=== PATIENT | female | born 1925 | race Caucasian/White ===

== ENCOUNTER → 2016-08-28 | Outpatient (CLI) | payer OTHER, BC ==
[~2016-08-28] VITALS: Ht 162.6 cm; Wt 83.5 kg
[~2016-08-28] MED LIST: AMBIEN 5 MG TABL5 M1 PO; APAP500 PO; ASPIR 8181 MG PO; BISACODYL SUPP10 MG RECTAL; CENTRUM SILVER1 EAC3 PO; CIPRO250 M1 PO; CLEOCIN HCL300 MG PO; COLACE100 MG PO; CRANBERRY500 M1 PO; FLONASE 0.05%50 MCG NASAL; FLORANEX TABLE1 EACH PO; GABAPENTIN 100100 MG PO; GAVILAX17 GM PO; HYDROCHLOROTH12.5 MG PO; HYDROCODONE-AP1 EA11 PO; HYDROCODONE-AP1 EAC6 PO; LEVAQUIN 250 M250 MG PO; LOPRESSOR25 PO; LUTEIN 15 MG S1 EACH PO; MACROBID 100 M100 M1 PO; MELATONIN3 MG PO; MELOXICAM7.5 MG PO; METAMUCIL PAC1 UDPKT PO; MILK OF MA2400 MG/10 PO; MIRALAX17 GM PO; NABUMETONE 500500 M1 PO; NAPROSYN500 MG PO; NITROFURANTOIN50 M4 PO; NORVASC10 MG PO; NORVASC5 MG PO; OMEPRAZOLE40 MG PO; PREDNISONE 20 M20 MG PO; PRESERVISION A1 EAC2 PO; PRESERVISION T1 EACH PO; PROAIR HFA8.5 GM; RED YEAST RICE600 MG PO; SENOKOT-S1 TA1 PO; SYMBICORT80 MCG/4.1 INH; TRAMADOL 50 MG50 MG PO; VENTOLIN HFA INH8 GM INH; VITAMIN D-32000 UNIT PO; VITAMINC500 PO; XOPENEX HF1 UDINHALE IH
--- NOTE | ~2016-08-28 | HPC ---
[facility] [address] [place] [address] PAIN MANAGEMENT CONSULTATION Name: KEM MANZANARES Mayra Room #: REG Jeffery Muhammad#: [id number] Admission: 08/28/16 Attend Phys: Edilson Goode DO Discharge: Date of : 07/[birth year] Report #: [id number] THIS REPORT FOR: //name// CC: Edilson Stevenson MD DATE OF SERVICE: 08/28/2016 REFERRING PHYSICIAN: Alisha Stevenson M.D. CHIEF COMPLAINT: Back pain. HISTORY OF PRESENT ILLNESS: As you know, patient is a very pleasant 89-year-old female who suffered an acute vertebral compression fracture for which she underwent a kyphoplasty procedure here at [facility] and unfortunately, this was unsuccessful alleviating any of her symptoms. She was referred to our service due to ongoing pain issues. It was noted that the vertebral augmentation was suboptimal and would not have improved her symptoms to any great degree. After treatment for this ongoing back pain, she contacted our clinic, advising us that her pain had intensified once again. She was sent for x-ray imaging found to have suffered a second vertebral compression fracture. This brought her to [facility] where she underwent a kyphoplasty procedure with better improvement in symptoms. She was then subsequently discharged from [facility] to a penitentiary facility where she has been recuperating from her fractures. During the hospitalization and [facility], she was given a prescription to have a TLSO brace fit, so that we can protect the vertebral column from future fractures. This was not applied. She returns today to discuss her concerns about the TLSO brace not being applied and medication management. ALLERGIES: SULFA, CODEINE and CEPHALEXIN. CURRENT MEDICATIONS: Acidophilus, MiraLax, bisacodyl, magnesium, Lutein, amlodipine, hydrocodone, nabumetone, Senokot, aspirin, hydrochlorothiazide and omeprazole. SOCIAL HISTORY: The patient denies tobacco, alcohol or IV illicit drug use. She is retired for years, accompanied by her daughter. PHYSICAL EXAMINATION: VITAL SIGNS: Blood pressure 124/62, pulse 65, respiratory rate 16 and unlabored. The patient 92% on room air. Height 5 feet 4 inches tall, weight 184 pounds and BMI calculated 31.6. GENERAL: Well developed, well nourished, well hydrated 89-year-old female appearing stated age, placing current pain score at 8/10. [address] [address] PAIN MANAGEMENT CONSULTATION Name: KEM MANZANARES Room #: REG CLI [facility]#: [id number] Admission: 08/28/16 Attend Phys: Edilson Goode DO Discharge: Date of : 07/[birth year] Report #: [id number] HEENT: Normocephalic and atraumatic. Pupils equal, round and reactive to light. Extraocular muscles are intact. She is deemed a good historian. NEUROLOGICAL: Speech is fluent. EXTREMITIES: Show no clubbing, no cyanosis and no edema. MUSCULOSKELETAL: Palpatory tenderness over the mid back area radiating pain from the thoracic and upper lumbar region and a myotomal distribution. ASSESSMENT: 1. Vertebral compression fracture status post unsuccessful vertebral augmentation at T12. 2. Vertebral compression fracture at L1 with kyphoplasty procedure. 3. Chronic lumbar radiculopathy. 4. Severe lumbosacral spondylosis with radicular symptoms. 5. Chronic intractable pain. PLAN: 1. The patient returns today in followup visit after being seen at [facility] for her second vertebral compression fracture status post kyphoplasty. She has done better with this procedure then original T12 compression fracture treatment. Her pain today is level of 8/10 and appears to be related to the areas of compression and there does not appear to be any new distribution of symptoms in radicular symptomology. The patient was provided a TLSO brace prescription upon discharge from [facility] and advised to apply this device when seated and standing. This can come off when she is lying down. She has been advised by the penitentiary facility that they did not feel this is an appropriate treatment. The patient returns today where I have advised the patient that they are mistaken. This is the treatment of choice and it is the only treatment that will protect the patient from future vertebral compression fractures. I gave the patient information about potentials for vertebral fractures that occur spontaneously. An initial vertebral compression fracture, one level, places the patient at risk of fourfold increase of fractures above and below the original fracture within a 6-week period. This occurred and the fracture was sustained at the level just below the initial fracture 2 weeks after her initial fracture was noted. This fracture has now been stabilized with kyphoplasty, but this places the patient at a 12-fold increase for any future vertebral compression fractures. A third vertebral compression fracture would then set the patient up for a 75-fold increased vertebral compression fracture above and below those levels. This is not acceptable. The patient needs to be on a TLSO brace immediately. I have advised the patient a TLSO brace must be worn for at least 6-8 weeks. She will have this TLSO brace applied immediately. I have written orders to the penitentiary facility. I have also provided the patient with a prescription so that she can obtain this as an outpatient. 2. The patient was provided a prescription of hydrocodone/acetaminophen 5/325 one tab p.o. 4 hours p.r.n hours for pain, given the patient #120 and advised to take the medication as necessary. The patient was provided this prescription [facility] [address] [place] [address] PAIN MANAGEMENT CONSULTATION Name: LEIGHTONKEM Mayra Room #: REG CLJeffery Muhammad#: [id number] Admission: 08/28/16 Attend Phys: Edilson Goode DO Discharge: Date of : 07/[birth year] Report #: [id number] assuming she will be discharged from penitentiary soon. 3. The patient returns to our clinic in approximately 1 month. She will be wearing her TLSO brace as ordered today and utilizing hydrocodone for pain control. <ELECTRONICALLY SIGNED> By: Edilson Goode DO 09/03/16 0737 50 [id number] Edilson Goode DO /nt
[2016-08-28 10:54] VITALS: BP 124/62
== END | disposition home or self-care (01) ==
LOC: PAIN 07:04
DX: M47.27 Other spondylosis with radiculopathy, lumbosacral region (principal); G89.29 Other chronic pain; S22.080G Wedge compression fracture of T11-T12 vertebra, subsequent encounter for fracture with delayed healing; S32.010D Wedge compression fracture of first lumbar vertebra, subsequent encounter for fracture with routine healing; Z98.1 Arthrodesis status; Z98.890 Other specified postprocedural states; X58.XXXD Exposure to other specified factors, subsequent encounter

== ENCOUNTER → 2016-11-13 | Outpatient (CLI) | payer OTHER, BC | LOC: GI 06:53 | DX: D50.9 Iron deficiency anemia, unspecified (principal) ==